=== PATIENT | female | born 1975 | race Caucasian/White ===

== ENCOUNTER → 2017-06-09 | Outpatient (CLI) | payer OTHER ==
[~2017-06-09] MED LIST: ESTRIDIAL; PRENTAB26 IM; [UNRECOGNIZED DRUG - OTHER] IM; [UNRECOGNIZED DRUG - OTHER] PO
== END | disposition home or self-care (01) ==
LOC: C.LAB 07:15
PROVIDERS: ATTEND Specialist
DX: Z32.00 Encounter for pregnancy test, result unknown (principal)

== ENCOUNTER → 2017-06-11 | Outpatient (CLI) | payer OTHER | END | disposition home or self-care (01) | LOC: C.LAB 07:09 | PROVIDERS: ATTEND Specialist | DX: Z32.00 Encounter for pregnancy test, result unknown (principal) ==

== ENCOUNTER → 2017-06-13 | Outpatient (CLI) | payer OTHER | END | disposition home or self-care (01) | LOC: C.LAB 06:57 | PROVIDERS: ATTEND Specialist | DX: Z32.00 Encounter for pregnancy test, result unknown (principal) ==

== ENCOUNTER → 2017-06-18 | Outpatient (CLI) | payer OTHER | END | disposition home or self-care (01) | LOC: C.LAB 10:22 | PROVIDERS: ATTEND Specialist | DX: Z01.83 Encounter for blood typing (principal) ==

== ENCOUNTER → 2017-06-19 | Day surgery (SDC) | payer OTHER ==
[~2017-06-19] VITALS: Ht 160 cm; Wt 54.5 kg
[2017-06-19 07:20] VITALS: BP 97/60; PULSE 66; TEMP 36.5; O2SAT 100; Ht 160 cm; Wt 54.5 kg
== END | disposition home or self-care (01) ==
LOC: C.MTU 07:18
PROVIDERS: ATTEND Obstetrics & Gynecology
DX: O46.90 Antepartum hemorrhage, unspecified, unspecified trimester (principal); Z3A.00 Weeks of gestation of pregnancy not specified

== ENCOUNTER → 2017-07-08 | Outpatient (CLI) | payer OTHER ==
[2017-07-12 01:57] LABS: CHLAMYDIA TRACH RNA*** NOT DETECTED (NOT DETECTED); GC (NEIS GONORRHOEAE)RNA** NOT DETECTED (NOT DETECTED)
== END | disposition home or self-care (01) ==
LOC: C.LABSPEC 14:31
PROVIDERS: ATTEND Obstetrics & Gynecology
DX: O09.511 Supervision of elderly primigravida, first trimester (principal); Z3A.00 Weeks of gestation of pregnancy not specified

== ENCOUNTER → 2017-08-28 | Outpatient (CLI) | payer OTHER ==
[2017-08-28 09:42] LABS: BASO % 0.1 %; BASO ABS # 0.01 K/uL (0-0.2); COMPLETE YES; EOS % 0.7 %; IG% 0.4 %; LYMPH % 13.3 %; MEAN CELL VOLUME 93.5 fL (80-100); MEAN CORPUSCULAR HEMOGLOBIN 30.6 pg (25-34); MEAN CORPUSCULAR HGB CONC 32.8 g/dl (32-36); MEAN PLATELET VOLUME 9.6 fL (7.4-10.4); MONO % 4.6 %; NEUT % 80.9 %; PLATELET COUNT 289 K/uL (130-400); RED BLOOD COUNT 4.28 M/uL (4.2-5.4)
[2017-08-28 09:56] LABS: GTGD 50 Grams
== END | disposition home or self-care (01) ==
LOC: C.LAB 07:12
PROVIDERS: ATTEND Obstetrics & Gynecology
DX: Z34.82 Encounter for supervision of other normal pregnancy, second trimester (principal); Z3A.00 Weeks of gestation of pregnancy not specified

== ENCOUNTER → 2017-11-28 | Day surgery (SDC) | payer OTHER ==
[~2017-11-28] VITALS: Ht 160 cm; Wt 65.0 kg
[2017-11-28 07:17] VITALS: BP 110/69; PULSE 70; TEMP 36.7; O2SAT 99; Ht 160 cm; Wt 65.0 kg
== END | disposition home or self-care (01) ==
LOC: C.MTU 07:09
PROVIDERS: ATTEND Obstetrics & Gynecology
DX: O09.512 Supervision of elderly primigravida, second trimester (principal); Z3A.00 Weeks of gestation of pregnancy not specified

== ENCOUNTER → 2017-12-19 | Outpatient (CLI) | payer OTHER ==
[~2017-12-19] MED LIST changes: -ESTRIDIAL; -[UNRECOGNIZED DRUG - OTHER] IM; -[UNRECOGNIZED DRUG - OTHER] PO
== END | disposition home or self-care (01) ==
LOC: C.LABSPEC 15:42
PROVIDERS: ATTEND Obstetrics & Gynecology
DX: J02.9 Acute pharyngitis, unspecified (principal)

== ENCOUNTER 2018-02-04 03:10 | Inpatient (IN) | payer OTHER ==
[2018-01-20 11:56] LABS: BASO % 0.1 %; BASO ABS # 0.01 K/uL (0-0.2); EOS % 0.4 %; EOS ABS # 0.04 K/uL (0-0.5); HEMATOCRIT 34.6 % (37-47); HEMOGLOBIN 11.3 g/dL (12.0-16.0); IG# 0.06 K/uL (0.00-0.02); LYMPH % 11.1 %; LYMPH ABS # 1.14 K/uL (1.2-3.4); MEAN CELL VOLUME 90.1 fL (80-100); MEAN CORPUSCULAR HEMOGLOBIN 29.4 pg (25-34); MEAN CORPUSCULAR HGB CONC 32.7 g/dl (32-36); MONO % 6.7 %; MONO ABS # 0.69 K/uL (0.11-0.59); NEUT % 81.1 %; NEUT ABS # 8.33 K/uL (1.4-6.5); PLATELET COUNT 267 K/uL (130-400); RED CELL DISTRIBUTION WIDTH CV 13.8 % (11.5-14.5); WHITE BLOOD COUNT 10.27 K/uL (4.8-10.8)
[2018-01-20 12:03] LABS: INR 0.9 (0.9-1.1); PTT PATIENT 24.8 SECONDS (21.0-31.0)
[2018-01-20 12:04] LABS: BLOOD UREA NITROGEN 9 mg/dl (7-18); CALCIUM 8.3 mg/dl (8.5-10.1); CARBON DIOXIDE 22 mmol/L (21-32); CREATININE 0.78 mg/dl (0.60-1.20); GLUCOSE 109 mg/dl (70-99); POTASSIUM 3.4 mmol/L (3.5-5.1); SODIUM 136 mmol/L (136-145)
[2018-02-04] VITALS (15 sets, daily range): BP systolic 91–98; BP diastolic 57–60; PULSE 54–77; TEMP 36–36.8; O2SAT 98–100; Ht 160 cm; Wt 70.0 kg
[~2018-02-04] VITALS: Ht 160 cm; Wt 70.0 kg
[2018-02-04] MEDS ORDERED: LACTATED RINGER'S 1000ML 1,000 ML IV SCH ×3 (05:46→06:00)
[2018-02-04] MEDS ORDERED: CITRIC ACID/SODIUM CITRATE 15 ML UDC PO SCH (06:00)
[2018-02-04] MEDS ORDERED: CEFOXITIN IV 2000 MG in DEXTROSE 5% 50ML IV SCH (06:00)
[2018-02-04 06:15] LABS: BASO % 0.1 %; BASO ABS # 0.01 K/uL (0-0.2); EOS % 0.7 %; EOS ABS # 0.05 K/uL (0-0.5); HEMATOCRIT 34.8 % (37-47); HEMOGLOBIN 11.5 g/dL (12.0-16.0); IG# 0.02 K/uL (0.00-0.02); LYMPH ABS # 1.44 K/uL (1.2-3.4); MEAN CELL VOLUME 87.9 fL (80-100); MONO % 10.3 %; MONO ABS # 0.74 K/uL (0.11-0.59); NEUT % 68.6 %; NEUT ABS # 4.93 K/uL (1.4-6.5); PLATELET COUNT 244 K/uL (130-400); RED CELL DISTRIBUTION WIDTH CV 14.1 % (11.5-14.5); RED CELL DISTRIBUTION WIDTH SD 45.5 fL (36.4-46.3); WHITE BLOOD COUNT 7.19 K/uL (4.8-10.8)
[2018-02-04 06:21] LABS: INR 0.9 (0.9-1.1); PTT PATIENT 23.9 SECONDS (21.0-31.0)
[2018-02-04] MEDS ORDERED: FENTANYL CITRATE INJ 50 MCG/1 ML 2 ML VIAL ONE (07:21)
[2018-02-04] MEDS ORDERED: MoRPHine SULFATE PF 1 MG/ML 10 ML AMP/VIAL ONE (07:21)
--- NOTE | 2018-02-04 08:02 | HISTORY & PHYSICAL EXAMINATION ---
DATE OF ADMISSION: 02/04/2018 CHIEF COMPLAINT: Intrauterine , 39 weeks' gestation, repeat section, desire for permanent sterilization. HISTORY OF PRESENT ILLNESS: The patient is a 42-year-old 2, para 1. She has been well dated during this . Her due date is 02/11/2018. She has had no problems. OBSTETRICAL HISTORY: First in 2012, 7 pounds 6 ounce girl after failed induction at 41 weeks and arrest of labor at 4 cm, presently requested repeat and patient was not interested in . The patient also requests tubal ligations, been made aware of the nature of the procedure including the fact it is intended to result in permanent and irreversible sterility. There are occasional failures where the tubal fails and the patient may get despite having had her tubes tied. PAST MEDICAL HISTORY: She has a girl 4-1/2 years old in good health. ALLERGIES: She has no known drug allergies. PAST SURGICAL HISTORY: She has had a previous . She has had 2 D&Cs. MEDICAL HISTORY: No history of rheumatic fever, heart disease, heart murmur, diabetes, tuberculosis. SOCIAL HISTORY: No smoking, no excessive alcohol intake. She works for [employer]. FAMILY HISTORY: Mom 76 in good health. Father 81 in good health. Seven brothers and sisters, all in good health. REVIEW OF SYSTEMS: HEAD: No symptoms of frequent or severe headaches. EYES: No symptoms of blurred vision or double vision. EARS: No symptoms of frequent ear infections or difficulty hearing. PHYSICAL EXAMINATION: GENERAL: Well developed, well-nourished 42-year-old white female, alert, oriented x3 and cooperative in no acute distress, appears stated age. EYES: Conjunctivae are pink. Sclerae white, no evidence of jaundice. EARS: Had normal light reflex bilaterally. NOSE: Had normal mucosa. Septum is midline. There were no polyps. THROAT: No erythema or evidence of infection. Teeth are in good state of repair. HEAD: Normocephalic, normal distribution of hair. NECK: Supple. Trachea midline. Thyroid is not enlarged. There is no adenopathy appreciated. Both carotids are of good intensity. CHEST: Clear to auscultation and percussion. No wheezes, rales or rhonchi appreciated. BREASTS: Normal. ABDOMEN: Revealed term size fetus, vertex presentation. Well-healed Pfannenstiel scar. PELVIC: Vertex presentation. Cervix posterior and closed. MUSCULOSKELETAL: Revealed no calf tenderness. IMPRESSIONS OF THIS CASE: Status post 2 dilatation and curettages, status post section, desire for permanent sterilization, intrauterine , 39 weeks gestation, previous section.
[2018-02-04] MEDS ORDERED: PHENYLEPHRINE 100MCG/ML 5ML SYR ONE (08:23)
[2018-02-04] MEDS ORDERED: KETOROLAC TROMETHAMINE 30 MG/ML VIAL ONE (08:23)
[2018-02-04] MEDS ORDERED: OXYTOCIN INJ 10 UNITS/ML VIAL ONE (08:23)
[2018-02-04] MEDS ORDERED: ONDANSETRON INJ 2 MG/ML 2 ML VIAL ONE (08:23)
[2018-02-04] MEDS ORDERED: OXYTOCIN INJ 10 UNITS/ML VIAL IM ONE (08:49)
--- NOTE | 2018-02-04 09:15 | [facility] Operative Report ---
Operative Report Operative Date Feb 04, 2018. Pre-Operative Diagnosis IUP AT 39 WEEKS; DESIRE FOR REPEAT SECTION AND BILATERAL TUBAL LIGATION Post-Operative Diagnosis SAME WITH DELIVERY OF LIVE MALE CHILD Procedure(s) Performed LOW TRANSVERSE SECTION AND BILATERAL TUBAL LIGATION Surgeon DR FERNANDO Roll Plugger Machine Operator Surgeon(s) DR TABOR Estimated Blood Loss 500 CC Findings DICTATED Fluids 1600 ml Specimens PLACENTA-HOLD PORTION OF RIGHT AND LEFT FALLOPIAN TUBE PRIVATE CORD BLOOD COLLECTION Drains None Anesthesia Type Spinal Complication(s) none Disposition L&D I attest to the content of the Intraoperative Record and any orders documented therein. Any exceptions are noted below.
[2018-02-04] MEDS ORDERED: MoRPHine SULFATE PF 1 MG/ML 10 ML AMP/VIAL EPI PRN (09:30)
[2018-02-04] MEDS ORDERED: SUPERCREAM 0.870 % 15GM JAR EXT PRN (09:30)
[2018-02-04] MEDS ORDERED: SENNA 8.6 MG TAB PO PRN (09:30)
[2018-02-04] MEDS ORDERED: NALOXONE HCL INJ 0.08 MG in SYRINGE 1.8 ML IV PRN (09:30)
[2018-02-04] MEDS ORDERED: NALOXONE HCL INJ 1 MG in SODIUM CHLORIDE 0.9% 1000ML 1,000 ML IV PRN (09:30)
[2018-02-04] MEDS ORDERED: ONDANSETRON INJ 2 MG/ML 2 ML VIAL IV PRN (09:30)
[2018-02-04] MEDS ORDERED: LANOLIN OINT EXT PRN (09:30)
[2018-02-04] MEDS ORDERED: KETOROLAC TROMETHAMINE 30 MG/ML VIAL IV. PRN (09:30)
[2018-02-04] MEDS ORDERED: BENZOCAINE 20% AER SPR 82.5 GM CAN EXT PRN (09:30)
[2018-02-04] MEDS ORDERED: LACTATED RINGER'S 1000ML 500 ML IV PRN (09:30)
[2018-02-04] MEDS ORDERED: DiphenhydrAMINE HCL 50 MG/ML VIAL IV PRN ×2 (09:30)
[2018-02-04] MEDS ORDERED: MAGNESIUM HYDROXIDE SUSP 30 ML UDC PO PRN (09:30)
[2018-02-04] MEDS ORDERED: HYDROCORTISONE ACETATE 25 MG SUPP PR PRN (09:30)
[2018-02-04] MEDS ORDERED: NALBUPHINE HCL INJ 10 MG/ML AMP IV PRN (09:30)
[2018-02-04] MEDS ORDERED: NALOXONE HCL 0.4 MG/1 ML VIAL/CARP IV PRN (09:30)
[2018-02-04] MEDS ORDERED: MoRPHine SULFATE 2 MG/ML CARP IV PRN (09:30)
[2018-02-04] MEDS ORDERED: NO NARCOTICS OR SEDATIVES SCH (09:30)
[2018-02-04] MEDS ORDERED: SODIUM CHLORIDE 0.9% 1000ML 1,000 ML IV PRN (09:30)
[2018-02-04] MEDS ORDERED: PROMETHAZINE HCL INJ 12.5 MG in SODIUM CHLORIDE 0.9% 50ML 50 ML IV PRN (09:30)
[2018-02-04] MEDS ORDERED: MEPERIDINE HCL 25 MG/ML CARP IV PRN (09:30)
[2018-02-04] MEDS ORDERED: EpHEDrine SULFATE INJ 50 MG/ML AMP IV PRN (09:30)
--- NOTE | 2018-02-04 09:53 | OPERATIVE REPORT ---
DATE OF OPERATION: 02/04/2018 PROCEDURES: Repeat low segment section and bilateral tubal ligation. INDICATIONS FOR SURGERY: Intrauterine , 39 weeks' gestation, and previous . PREOPERATIVE DIAGNOSES: Intrauterine , 39 weeks' gestation, previous and desire for permanent sterilization. POSTOPERATIVE DIAGNOSES: Same. Delivered a live male . SURGEON: Juanita Clark MD SHIPPING CLERK PACKING: Dr. Alicia. ESTIMATED BLOOD LOSS: 500 mL. ANESTHESIA: Spinal. OPERATIVE FINDINGS AND PROCEDURE: The patient was brought to the OR table and correctly identified by armband and conversation. Spinal anesthesia was administered. Barone catheter was inserted aseptically in the bladder. Compression stockings were applied. Lower abdomen was painted with an alcohol based sterilizing solution. Following a 3-minute wait, the patient was draped in the usual sterile fashion. Level of the anesthesia was checked and found to be adequate. A Pfannenstiel incision was made through her previous scar. Hemostasis was secured by electrocauterization. Fascia was incised transversely, from underlying muscle by blunt and sharp dissection. Recti muscles were in midline exposing peritoneum, which was carefully raised and entered. Incision was made above the vesicouterine fold. Bladder was undermined bluntly and pushed off the operative field. Lower uterine segment was scored with a knife and then entered with the scissors. Clear amniotic fluid was seen at this time. A Vectis retractor was applied to the infant's head and we started to push. The Vectis retractor slipped off once. It was reapplied and we delivered the head through the incision and suctioned the through the mouth and the nose. Then, the body was delivered without difficulty and the infant was attended to by the throat cutter, Dr. Mota, who was scrubbed and present at the time of delivery. Cord was clamped. Cord blood was taken for cord banking. Placenta was then removed manually. Uterus, tubes, and ovaries were brought out through the incision. Uterine cavity was wiped clean with a clean sponge. Ten units of Pitocin was injected into the myometrium. The lower incisional defect was repaired in layers. First layer was a layer of heavy duty chromic, which approximated the myometrial layer. Then, we did a fascial layer over this with heavy duty Vicryl and then used 3 or 4 interrupted [id number] sutures of heavy Vicryl to complete the approximation. We also did a horizontal suture of Vicryl above and below the incision on the left side due to some bleeding. Hemostasis now was excellent. Attention was turned to doing the tubal ligation. The mid portion of the tube was ligated proximally and distally. The broad ligament was infiltrated with local. The 2 leaves of the broad ligament were . The tube was excised between the 2 leaves and then the 2 leaves of the broad ligament were approximated front to back, burying the proximal stump of the tube and exteriorizing the distal. This was done for both the right and left side. Pelvis was now cleansed of all blood clots and debris. Uterus, tubes, and ovaries were reinserted into the abdomen. Now, careful anatomical approximation of the anterior abdominal wall was performed. Peritoneum was closed with a mattress suture of chromic catgut. Recti muscles were approximated with interrupted [id number] chromic catgut. The fascia was closed with continuous interlocking suture of Vicryl on each side and tied in the midline. Then, the subQ was undermined to provide good mobility in the skin edges and then we used a deep suture of continuous plain and then skin edges were approximated with soledad. Following this, hemostasis was good. The patient tolerated the procedure well and left the OR in good condition. I attest to the content of the Intraoperative Record and any orders documented therein. Any exception s are noted below.
[2018-02-04] MEDS: SIMETHICONE 80 MG CHEW PO SCH ×3 (12:00→19:42)
[2018-02-04] MEDS: OXYTOCIN INJ 20 UNITS in D5W AND LACTATED RINGERS 1,000 ML IV SCH ×2 (12:09→21:08)
--- NOTE | 2018-02-04 18:21 | Anesthesiology Progress Note ---
Anesthesia Post Op Note Date & Time Feb 04, 2018 at 18:20 Vital Signs Pain Intensity: 2.0 Vital Signs Past 12 Hours Date Time Temp Pulse Resp B/P (MAP) Pulse Ox O2 Delivery O2 Flow Rate FiO2 02/04/18 15:30 Room Air 02/04/18 15:30 36.0 54 16 91/57 (68) 100 Room Air 02/04/18 14:00 18 100 02/04/18 13:00 18 98 02/04/18 12:00 18 99 02/04/18 11:40 99 Room Air 02/04/18 11:40 99 Room Air 02/04/18 11:40 18 99 Notes Mental Status: alert / awake / arousable, participated in evaluation Pt Amnestic to Procedure: Yes Nausea / Vomiting: adequately controlled Pain: adequately controlled Airway Patency, RR, SpO2: stable & adequate BP & HR: stable & adequate Hydration State: stable & adequate Neuraxial Anesthesia: was administered, sensory block resolved Anesthetic Complications: no major complications apparent
[2018-02-04] MEDS: DOCUSATE SODIUM 100 MG CAP PO SCH (19:42)
[2018-02-05] VITALS (7 sets, daily range): BP systolic 92–122; BP diastolic 54–66; PULSE 54–59; TEMP 36.5–36.8; O2SAT 98–100
[2018-02-05] MEDS ORDERED: MEPERIDINE HCL 50 MG/ML CARP IV PRN ×2 (02:00)
[2018-02-05] MEDS ORDERED: DC INTRASPINAL MORPHINE SCH (02:00)
[2018-02-05] MEDS ORDERED: IBUPROFEN 600 MG TAB PO PRN (02:00)
[2018-02-05] MEDS ORDERED: OXYCODONE/ACETAMINOPHEN 5-325 TAB PO PRN (02:00)
[2018-02-05] MEDS ORDERED: ZOLPIDEM TARTRATE 5 MG TAB PO PRN (02:00)
[2018-02-05] MEDS ORDERED: KETOROLAC TROMETHAMINE 30 MG/ML VIAL IV. PRN (02:00)
[2018-02-05] MEDS ORDERED: ONDANSETRON INJ 2 MG/ML 2 ML VIAL IV PRN (02:00)
[2018-02-05] MEDS ORDERED: DiphenhydrAMINE HCL 50 MG/ML VIAL IV PRN (02:00)
[2018-02-05] MEDS: IBUPROFEN 600 MG TAB PO PRN ×4 (02:32→20:30)
[2018-02-05] MEDS: OXYCODONE/ACETAMINOPHEN 5-325 TAB PO PRN ×4 (02:32→20:30)
[2018-02-05 06:14] LABS: BASO % 0.1 %; BASO ABS # 0.01 K/uL (0-0.2); EOS % 0.7 %; EOS ABS # 0.07 K/uL (0-0.5); HEMATOCRIT 30.2 % (37-47); HEMOGLOBIN 10.1 g/dL (12.0-16.0); IG# 0.02 K/uL (0.00-0.02); LYMPH ABS # 1.23 K/uL (1.2-3.4); MEAN CELL VOLUME 88.3 fL (80-100); MEAN CORPUSCULAR HEMOGLOBIN 29.5 pg (25-34); MEAN CORPUSCULAR HGB CONC 33.4 g/dl (32-36); MEAN PLATELET VOLUME 9.8 fL (7.4-10.4); MONO % 10.1 %; MONO ABS # 0.96 K/uL (0.11-0.59); NEUT % 75.9 %; NEUT ABS # 7.17 K/uL (1.4-6.5); PLATELET COUNT 210 K/uL (130-400); RED CELL DISTRIBUTION WIDTH CV 14.1 % (11.5-14.5); RED CELL DISTRIBUTION WIDTH SD 45.9 fL (36.4-46.3); WHITE BLOOD COUNT 9.46 K/uL (4.8-10.8)
[2018-02-05] MEDS: DOCUSATE SODIUM 100 MG CAP PO SCH ×2 (08:23→20:22)
[2018-02-05] MEDS: FERROUS SULFATE 325 MG TAB PO SCH (08:23)
[2018-02-05] MEDS: SIMETHICONE 80 MG CHEW PO SCH ×4 (08:23→20:22)
[2018-02-05] MEDS: PRENATAL VITAMIN TAB PO SCH (08:23)
--- NOTE | 2018-02-05 08:57 | Progress Note ---
Subjective Feb 05, 2018. Subjective conversation w/ patient Ambulation: limited ambulation Voiding: no voiding problems Passing Gas: Yes Diet Tolerance: Regular Diet Lochia: Small Feeding Type: Breast Feeding Review of Systems Constitutional: + fever Objective Vital Signs Date Time Temp Pulse Resp B/P (MAP) Pulse Ox O2 Delivery O2 Flow Rate FiO2 02/05/18 03:15 36.8 58 18 92/56 (68) Room Air 02/05/18 02:00 18 98 02/05/18 01:00 18 99 02/05/18 00:00 18 100 02/04/18 23:40 36.8 77 18 98/58 (71) Room Air 02/04/18 23:40 100 Room Air 02/04/18 23:00 18 98 02/04/18 22:00 16 99 02/04/18 21:00 18 100 02/04/18 20:00 16 100 02/04/18 20:00 36.6 74 16 95/60 (72) 100 Room Air 02/04/18 19:00 16 98 02/04/18 18:00 16 98 02/04/18 17:00 16 100 02/04/18 16:00 16 99 02/04/18 15:30 Room Air 02/04/18 15:30 36.0 54 16 91/57 (68) 100 Room Air 02/04/18 15:00 16 100 02/04/18 14:00 18 100 02/04/18 13:00 18 98 02/04/18 12:00 18 99 02/04/18 11:40 99 Room Air 02/04/18 11:40 99 Room Air 02/04/18 11:40 18 99 Physical Exam General Appearance: WELL-APPEARING Abdomen: normal bowel sounds, non tender Fundus: Firm, Non-Tender Incision Description: Clean, Dry & Intact Extremities: no pedal edema, no calf tenderness Laboratory Results Last 24 Hours Test 02/05/18 05:59 White Blood Count 9.46 K/uL Red Blood Count 3.42 M/uL Hemoglobin 10.1 g/dL Hematocrit 30.2 % Mean Corpuscular Volume 88.3 fL Mean Corpuscular Hemoglobin 29.5 pg Mean Corpuscular Hemoglobin Concent 33.4 g/dl Platelet Count 210 K/uL Mean Platelet Volume 9.8 fL Neutrophils (%) (Auto) 75.9 % Lymphocytes (%) (Auto) 13.0 % Monocytes (%) (Auto) 10.1 % Eosinophils (%) (Auto) 0.7 % Basophils (%) (Auto) 0.1 % Neutrophils # (Auto) 7.17 K/uL Lymphocytes # (Auto) 1.23 K/uL Monocytes # (Auto) 0.96 K/uL Eosinophils # (Auto) 0.07 K/uL Basophils # (Auto) 0.01 K/uL RDW Standard Deviation 45.9 fL RDW Coefficient of Variation 14.1 % Immature Granulocyte % (Auto) 0.2 % Immature Granulocyte # (Auto) 0.02 K/uL Assessment and Plan Post-Op Day#: 1 Continue Routine Care: bandage removed
[2018-02-05] MEDS ORDERED: DIPHTHERIA/TETANUS/PERTUSSIS 0.5 ML SYR/VIAL IM. ONE (09:30)
[2018-02-05] MEDS ORDERED: BISACODYL 5 MG TABEC ONE (20:19)
[2018-02-05] MEDS ORDERED: BISACODYL 5 MG TABEC PO ONE (22:00)
[2018-02-06] MEDS: IBUPROFEN 600 MG TAB PO PRN ×4 (03:27→22:59)
[2018-02-06] MEDS: OXYCODONE/ACETAMINOPHEN 5-325 TAB PO PRN ×4 (03:27→22:59)
[2018-02-06 07:20] VITALS: BP 116/69; PULSE 67; TEMP 36.4; O2SAT 100
[2018-02-06] MEDS: DOCUSATE SODIUM 100 MG CAP PO SCH ×2 (08:35→20:34)
[2018-02-06] MEDS: SIMETHICONE 80 MG CHEW PO SCH ×4 (08:35→20:34)
[2018-02-06] MEDS: FERROUS SULFATE 325 MG TAB PO SCH (08:35)
[2018-02-06] MEDS: PRENATAL VITAMIN TAB PO SCH (08:35)
--- NOTE | 2018-02-06 09:09 | Progress Note ---
Subjective Feb 06, 2018. Subjective conversation w/ patient Ambulation: ambulating normally Voiding: no voiding problems Passing Gas: Yes Diet Tolerance: Regular Diet Lochia: Small Feeding Type: Breast Feeding Review of Systems Constitutional: + fever Objective Vital Signs Date Time Temp Pulse Resp B/P (MAP) Pulse Ox O2 Delivery O2 Flow Rate FiO2 02/05/18 23:25 100 Room Air 02/05/18 15:40 100 Room Air 02/05/18 15:40 36.5 59 18 122/54 (76) 100 Room Air Physical Exam General Appearance: WELL-APPEARING Abdomen: normal bowel sounds, non tender Fundus: Firm, Non-Tender Incision Description: Clean, Dry & Intact Extremities: no pedal edema, no calf tenderness Assessment and Plan Post-Op Day#: 2
[2018-02-06] MEDS ORDERED: BISACODYL 10 MG SUPP PR PRN (09:30)
[2018-02-06 16:10] VITALS: BP 100/63; PULSE 72; TEMP 36.7; O2SAT 100
[2018-02-06 23:00] VITALS: BP 111/73; PULSE 70; TEMP 36.5
[2018-02-07 07:30] VITALS: BP 117/73; PULSE 64; TEMP 36.6; O2SAT 100
[2018-02-07] MEDS: OXYCODONE/ACETAMINOPHEN 5-325 TAB PO PRN ×2 (07:51→12:11)
[2018-02-07] MEDS: PRENATAL VITAMIN TAB PO SCH (07:52)
[2018-02-07] MEDS: SIMETHICONE 80 MG CHEW PO SCH ×2 (07:52→12:10)
[2018-02-07] MEDS: FERROUS SULFATE 325 MG TAB PO SCH (07:52)
[2018-02-07] MEDS: DOCUSATE SODIUM 100 MG CAP PO SCH (07:52)
[2018-02-07] MEDS: IBUPROFEN 600 MG TAB PO PRN ×2 (07:52→12:11)
--- NOTE | 2018-02-07 08:25 | Progress Note ---
Subjective Feb 07, 2018. Subjective conversation w/ patient Ambulation: ambulating normally Voiding: no voiding problems Passing Gas: Yes Diet Tolerance: Regular Diet Lochia: Small Feeding Type: Breast Feeding Review of Systems Constitutional: + fever Objective Vital Signs Date Time Temp Pulse Resp B/P (MAP) Pulse Ox O2 Delivery O2 Flow Rate FiO2 02/06/18 23:00 36.5 70 18 111/73 (86) Room Air 02/06/18 23:00 Room Air 02/06/18 16:10 100 Room Air 02/06/18 16:10 36.7 72 18 100/63 (75) 100 Room Air Physical Exam General Appearance: WELL-APPEARING Abdomen: normal bowel sounds, non tender Fundus: Firm, Non-Tender Incision Description: Clean, Dry & Intact Extremities: no pedal edema, no calf tenderness Assessment and Plan Post-Op Day#: 3
--- NOTE | 2018-02-07 08:28 | Discharge Instructions ---
Discharge Instructions Date of Service Feb 07, 2018. Admission Reason for Admission: Previous Section Discharge Discharge Diagnosis / Problem: repeat C section tubal ligation Discharge Goals Goal(s): Routine recovery after Activity Recommendations Activity Limitations: as noted below ACTIVITY RECOMMENDATIONS: * Gradual return to full activity over the next 2-3 weeks. * No lifting - nothing heavier than baby over the next 2-3 weeks. * Do not engage in vigorous exercise, sexual activity or sports for 6 weeks. * Do not drive or operate any motorized equipment for 14 days. * You may shower/bathe daily. DIET: Resume Previous Diet If Breast-feeding: * Increase caloric intake by 500 calories, eat 3 well balanced meals, 2 high protein snacks a day and drink 6-8 8oz. glasses of fluid per day. BREAST CARE: If you are not breast feeding: * Wear a supportive bra 24 hours a day for one to two weeks. * Avoid stimulating your breasts and nipples as much as possible during the first few weeks after delivery. * When taking a shower, have the warm water hit your back, not breasts. * When your breasts feel full, apply ice packs. Usually three to four times a day helps ease the discomfort. * Take a mild pain medication (Tylenol / Motrin) when you are uncomfortable. If breast feeding: * Use breast milk to lubricate nipples. Lansinoh cream may be used for sore nipples. You do not need to remove cream prior to breast feeding. If using a different brand of cream, check the label for directions regarding removal of cream prior to nursing. * Wear a supportive bra. * If having problems with breasts or breast feeding, call a immigration consultant or your health care provider. VITAMINS: * One tablet daily. Continue taking while or until you have your check up in 6 weeks. SPECIAL CARE INSTRUCTIONS: * Vaginal rest (no tampons, douching, intercourse) until after doctor's visit. * control as discussed with doctor. * Verbalizes understanding of car seat law as reviewed with patient by nursing. * Car Seat hand-out given and reviewed with patient by nursing. * Shaken baby information reviewed with patient by nursing. Call you doctor if: * Heavy bleeding (saturating a pad an hour) or passing clots the size of your fist. Bleeding has a foul smelling odor. * A fever greater than 100.4 degrees F (38 degrees C) on two occasions four hours apart and/or chills. * Unusual pain in the pelvic or vaginal areas. Pain should improve each day . * Call the doctor for any increased redness, drainage or swelling around the incision and any pain unrelieved by prescribed pain medication. * Signs and symptoms of phlebitis(possible blood clots forming in the veins): leg pain, warm, red or swollen area on leg. * "Baby Blues" lasting longer than two weeks. If you have any questions or concerns, call your health care practitioner at [phone]. FOLLOW-UP VISIT: Follow-up visit for examination in 6 weeks. Incision check (staple removal) in 1 week. Please call office at [phone] if not already scheduled. . Instructions / Follow-Up Instructions / Follow-Up ACTIVITY RECOMMENDATIONS: * Gradual return to full activity over the next 2-3 weeks. * No lifting - nothing heavier than baby over the next 2-3 weeks. * Do not engage in vigorous exercise, sexual activity or sports for 6 weeks. * Do not drive or operate any motorized equipment for 14 days. * You may shower/bathe daily. DIET: Resume Previous Diet If Breast-feeding: * Increase caloric intake by 500 calories, eat 3 well balanced meals, 2 high protein snacks a day and drink 6-8 8oz. glasses of fluid per day. BREAST CARE: If you are not breast feeding: * Wear a supportive bra 24 hours a day for one to two weeks. * Avoid stimulating your breasts and nipples as much as possible during the first few weeks after delivery. * When taking a shower, have the warm water hit your back, not breasts. * When your breasts feel full, apply ice packs. Usually three to four times a day helps ease the discomfort. * Take a mild pain medication (Tylenol / Motrin) when you are uncomfortable. If breast feeding: * Use breast milk to lubricate nipples. Lansinoh cream may be used for sore nipples. You do not need to remove cream prior to breast feeding. If using a different brand of cream, check the label for directions regarding removal of cream prior to nursing. * Wear a supportive bra. * If having problems with breasts or breast feeding, call a immigration consultant or your health care provider. VITAMINS: * One tablet daily. Continue taking while or until you have your check up in 6 weeks. SPECIAL CARE INSTRUCTIONS: * Vaginal rest (no tampons, douching, intercourse) until after doctor's visit. * control as discussed with doctor. * Verbalizes understanding of car seat law as reviewed with patient by nursing. * Car Seat hand-out given and reviewed with patient by nursing. * Shaken baby information reviewed with patient by nursing. Call you doctor if: * Heavy bleeding (saturating a pad an hour) or passing clots the size of your fist. Bleeding has a foul smelling odor. * A fever greater than 100.4 degrees F (38 degrees C) on two occasions four hours apart and/or chills. * Unusual pain in the pelvic or vaginal areas. Pain should improve each day . * Call the doctor for any increased redness, drainage or swelling around the incision and any pain unrelieved by prescribed pain medication. * Signs and symptoms of phlebitis(possible blood clots forming in the veins): leg pain, warm, red or swollen area on leg. * "Baby Blues" lasting longer than two weeks. If you have any questions or concerns, call your health care practitioner at [phone]. FOLLOW-UP VISIT: Follow-up visit for examination in 6 weeks. Incision check (staple removal) in 1 week. Please call office at [phone] if not already scheduled. Current Hospital Diet Patient's current hospital diet: Regular Diet Discharge Diet Recommended Diet: Regular Diet Procedures Procedures Performed: LOW TRANSVERSE SECTION AND BILATERAL TUBAL LIGATION Pending Studies Studies pending at discharge: no Medical Emergencies . Who to Call and When: Medical Emergencies: If at any time you feel your situation is an emergency, please call 911 immediately. . Non-Emergent Contact Non-Emergency issues call your: Slag Worker Call Non-Emergent contact if: temperature is above 100.5 . . "Provider Documentation" section prepared by Jeremy Clark. .
[2018-02-07 13:50] VITALS: BP_DIAS 73; PULSE 64; TEMP 36.6
== END 2018-02-07 13:50 | disposition home or self-care (01) | DRG 766 ==
LOC: C.LD 05:38 → EDSTATUS 07:30 → C.OBG 11:49
PROVIDERS: ADMIT Obstetrics & Gynecology; ATTEND Obstetrics & Gynecology
PROC: 0UB70ZZ Excision of Bilateral Fallopian Tubes, Open Approach (ICD-10-PCS; principal; 2018-02-04 07:30)
PROC: 10D00Z1 Extraction of Products of Conception, Low, Open Approach (ICD-10-PCS; principal; 2018-02-04 07:30)
DX: O34.211 Maternal care for low transverse scar from previous cesarean delivery (principal); Z37.0 Single live birth; N85.8 Other specified noninflammatory disorders of uterus; Z3A.39 39 weeks gestation of pregnancy; Z30.2 Encounter for sterilization; Z23 Encounter for immunization

== ENCOUNTER → 2018-03-17 | Outpatient (CLI) | payer OTHER | END | disposition home or self-care (01) | LOC: C.PAPS 15:02 | PROVIDERS: ATTEND Obstetrics & Gynecology | DX: Z39.2 Encounter for routine postpartum follow-up (principal) ==